=== PATIENT | male | born 2000 | race American Indian/Alaskan Native ===

== ENCOUNTER 2021-06-12 12:10 | Emergency (ER) | payer SELFPAY ==
[2021-06-12 12:19] VITALS: BP 117/76
[2021-06-12] MEDS ORDERED: IPRATROPIUM/ALBUTEROL SULFATE 3 ML AMPUL.NEB IH ONE (13:00)
[2021-06-12] MEDS ORDERED: predniSONE 20 MG TAB PO ONE (13:00)
--- NOTE | 2021-06-12 13:01 | Emergency Department Report ---
ED Asthma HPI - General Chief Complaint: Adult Asthma Stated Complaint: ASTHMA Time Seen by Provider: 06/12/21 12:40 Source: patient Mode of arrival: Ambulatory Limitations: No Limitations - History of Present Illness Initial Comments: 20-year-old male with a past medical history of asthma presents to the ER today with complaints asthma flareup. Patient states that he was sick with a cold around the end of May. He took a COVID-19 test and it was negative. He states that majority of his URI symptoms have resolved but he still continues to have a productive cough, with wheezing, and chest pressure. He states that he has been using his nebulizer treatments about 3 times a day and his albuterol MDI as needed to about 3-4 times a day but he feels like the not helping. He also admits that the medication may be but is not quite sure. He denies any fever or chills. He reports no prior admission for his asthma in the past. He states that he smokes marijuana but no tobacco. MD Complaint: "asthma attack", wheezing, other (Chest tightness) -: days(s) - Related Data Previous Rx's Medication Instructions Recorded Last Taken Type Albuterol Mdi (or & Nicu Only) 2 puff IH QID PRN #8.5 gram 06/12/21 Unknown Rx [ProAir HFA Inhaler] Albuterol Sulfate [Albuterol 0.63% 0.63 mg IH QID PRN #30 neb 06/12/21 Unknown Rx NEBS] predniSONE [Deltasone] 20 mg PO BID #8 tab 06/12/21 Unknown Rx Allergies Allergy/AdvReac Type Severity Reaction Status Date / Time No Known Allergies Allergy Unverified 06/12/21 12:12 ED Review of Systems ROS: Stated complaint: ASTHMA Other details as noted in HPI Comment: All other systems reviewed and negative Constitutional: denies: chills, fever Eyes: denies: eye pain, eye discharge, vision change ENT: denies: ear pain, throat pain, dental pain, hearing loss, epistaxis, congestion Respiratory: cough, wheezing. denies: shortness of breath, SOB with exertion, SOB at rest Cardiovascular: chest pain (Chest pressure). denies: palpitations, dyspnea on exertion, orthopnea, edema, syncope, paroxysmal nocturnal dyspnea Gastrointestinal: denies: abdominal pain, nausea, vomiting, diarrhea, hematemesis, melena Genitourinary: denies: urgency, dysuria, frequency, hematuria, discharge, testicular pain, testicular mass Musculoskeletal: denies: back pain, joint swelling, arthralgia Skin: denies: rash, lesions, change in color, change in hair/nails, pruritus Neurological: denies: headache, weakness, numbness, paresthesias, confusion, abnormal gait, vertigo Psychiatric: denies: anxiety, depression, auditory hallucinations, visual hallucinations, homicidal thoughts, suicidal thoughts Hematological/Lymphatic: denies: easy bleeding, easy bruising, swollen glands ED Past Medical Hx - Medications Home Medications: Home Medications Medication Instructions Recorded Confirmed Last Taken Type Albuterol Mdi (or & Nicu Only) 2 puff IH QID PRN #8.5 gram 06/12/21 Unknown Rx [ProAir HFA Inhaler] Albuterol Sulfate [Albuterol 0.63% 0.63 mg IH QID PRN #30 neb 06/12/21 Unknown Rx NEBS] predniSONE [Deltasone] 20 mg PO BID #8 tab 06/12/21 Unknown Rx ED Physical Exam - General Limitations: No Limitations General appearance: alert, in no apparent distress - Head Head exam: Present: atraumatic, normocephalic, normal inspection - Eye Eye exam: Present: normal appearance, PERRL, EOMI Pupils: Present: normal accommodation - ENT ENT exam: Present: normal exam, mucous membranes moist, TM's normal bilaterally - Respiratory Respiratory exam: Present: normal lung sounds bilaterally, wheezes (Mild diffuse expiratory wheezing noted), rales, rhonchi, stridor. Absent: respiratory distress, chest wall tenderness - Cardiovascular Cardiovascular Exam: Present: regular rate, normal rhythm, normal heart sounds - GI/Abdominal GI/Abdominal exam: Present: soft. Absent: distended, tenderness, guarding, rebound - Neurological Exam Neurological exam: Present: alert, oriented X3, CN II-XII intact, normal gait - Psychiatric Psychiatric exam: Present: normal affect, normal mood ED Course Vital Signs 06/12/21 12:18 Temperature 98 F Pulse Rate 79 Respiratory 20 Rate Blood Pressure 117/76 [Right] O2 Sat by Pulse 97 Oximetry ED Medical Decision Making - Radiology Data Radiology results: report reviewed Patient: TIRSO BRAR MR#: [id number] : 2000 Acct:[id number] Age/Sex: 20 / M ADM Date: 06/12/21 Loc: ED Attending Dr: Ordering Physician: CHRISTY ROSS Date of Service: 06/12/21 Procedure(s): XR chest routine 2V Accession Number(s): [id number] cc: CHRISTY ROSS Fluoro Time In Minutes: CHEST 2 VIEWS INDICATION / CLINICAL INFORMATION: cough/wheezing. COMPARISON: None available. FINDINGS: SUPPORT DEVICES: None. HEART / MEDIASTINUM: No significant abnormality. LUNGS / PLEURA: No significant pulmonary or pleural abnormality. No pneumothorax. ADDITIONAL FINDINGS: No significant additional findings. IMPRESSION: 1. No acute findings. Signer Name: Juan Pablo Cordova MD Signed: 06/12/2021 2:06 PM Workstation Name: [id number] Transcribed By: NICK Dictated By: Juan Pablo Cordova MD Electronically Authenticated By: Juan Pablo Cordova MD Signed Date/Time: 06/12/211405 DD/ 05 TD/TT: - Medical Decision Making 1420: Patient reports feeling much better after nebulizer treatment. Repeat chest exam shows much improvement of the wheezing. He is currently not in any a cute pain or respiratory distress. He is actually anxious and ready to go home.he is feeling better. He appears well. He is not toxic. He appears well- hydrated. His vital signs are stable. Chest x-ray shows no acute abnormalities. Patient will be discharged home with a prescription for albuterol MDI as well as butyryl nebulizers and prednisone for 5 days. He can take [id number] cough medications. Patient expressed understanding of all instructions and agree with plan. Patient was stable at time of discharge - Differential Diagnosis Severe asthma exacerbation, pneumonia, URI Critical care attestation.: If time is entered above; I have spent that time in minutes in the direct care of this critically ill patient, excluding procedure time. ED Disposition Clinical Impression: Asthma flare Disposition: HOME / SELF CARE / HOMELESS Is pt being admited?: No Does the pt Need Aspirin: No Condition: Stable Instructions: Asthma, Adult, [id number] Additional Instructions: I recommend that you get the albuterol MDI as well as albuterol nebulizer field and start using this new prescription as prescribed. Take the prednisone as p rescribed. You can take Robitussin or Mucinex from [id number] to help with cough. Follow-up with your primary care doctor. Return to the ER if your symptoms worsens or changes in any way. Prescriptions: Albuterol Sulfate [Albuterol 0.63% NEBS] 0.63 mg IH QID PRN #30 neb PRN Reason: Wheezing predniSONE [Deltasone] 20 mg PO BID #8 tab Albuterol Mdi (or & Nicu Only) [ProAir HFA Inhaler] 2 puff IH QID PRN #8.5 gram PRN Reason: Shortness Of Breath Referrals: PRIMARY CAREMD [Primary Care Provider] - 3-5 Days EDILBERTO ALMEIDA MD [Staff Physician] - 3-5 Days Forms: Work/School Release Form(ED) Time of Disposition: 14:16
--- NOTE | 2021-06-12 14:11 | XRay Report ---
CHEST 2 VIEWS INDICATION / CLINICAL INFORMATION: cough/wheezing. COMPARISON: None available. FINDINGS: SUPPORT DEVICES: None. HEART / MEDIASTINUM: No significant abnormality. LUNGS / PLEURA: No significant pulmonary or pleural abnormality. No pneumothorax. ADDITIONAL FINDINGS: No significant additional findings. IMPRESSION: 1. No acute findings. Signer Name: Juan Pablo Cordova MD Signed: 06/12/2021 2:06 PM Workstation Name: [id number]
== END 2021-06-12 14:24 | disposition home or self-care (01) ==
LOC: ED 12:10
DX: J45.901 Unspecified asthma with (acute) exacerbation (principal)
CPT/HCPCS: 71046; 94640; 99283; J7512